=== PATIENT | female | born 1965 | race Caucasian/White ===

== ENCOUNTER → 2016-03-27 | Outpatient (CLI) | payer BC ==
[~2016-03-27] MED LIST: AMBIEN CR 12.12.5 MG PO; BENADRYL25 M2 PO; CELEXA 20MG20 MG/TAB PO; CELEXA40 MG PO; CHANTIX 1MG1 MG PO; DESYREL 50MG50 MG PO; DIPHENHYDRAMINE25 M1; IMITREX100 MG; KLONOPIN 1MG1 MG PO; LEVAQUIN 5500 MG/TA1 PO; MACRODANTIN100 PO; MAXALT10 MG PO; MELATONIN5 M1; MORPHINE 1515 MG/TAB PO; MS CONTIN 115 MG/TAB PO; NEURONTIN300 MG/CAP PO; NICODERM C7 MG/PATCH TOP; NO HOME MEDICATIONS; PROTANDIM PO; PROTONIX 40MG T40 MG PO; RITALIN 5MG5 MG/TAB; STOOL SOFTENER100 M2 PO; SYNTHROID 0.10.15 MG PO; SYNTHROID0.137 MG; SYNTHROID0.175 MG PO; TYLENOL EXTRA500 M1 PO; WELLBUTRIN XL150 MG PO; XANAX .25M0.25 MG/TA PO; XANAX 0.5MG0.5 MG PO; ZOFRAN 4MG T4 MG/TAB SL; ZOFRAN ODT4 MG PO; ZOVIRAX 200MG200 MG PO
== END ==
LOC: BHSO 15:11
DX: F31.0 Bipolar disorder, current episode hypomanic (principal)

== ENCOUNTER → 2016-04-07 | Outpatient (CLI) | payer BC | LOC: BHSO 16:21 | DX: F31.2 Bipolar disorder, current episode manic severe with psychotic features (principal) ==

== ENCOUNTER → 2016-05-02 | Outpatient (CLI) | payer BC | LOC: BHSO 15:38 | DX: F31.73 Bipolar disorder, in partial remission, most recent episode manic (principal) ==

== ENCOUNTER → 2016-06-05 | Outpatient (CLI) | payer BC | LOC: BHSO 16:04 | DX: F41.1 Generalized anxiety disorder (principal) ==

== ENCOUNTER → 2016-07-28 | Outpatient (CLI) | payer BC | LOC: BHSO 15:46 | DX: F31.73 Bipolar disorder, in partial remission, most recent episode manic (principal) ==

== ENCOUNTER → 2016-10-10 | Outpatient (CLI) | payer BC | LOC: BHSO 16:07 | DX: F31.73 Bipolar disorder, in partial remission, most recent episode manic (principal) ==

== ENCOUNTER → 2016-12-15 | Outpatient (CLI) | payer BC | LOC: BHSO 15:51 | DX: F31.73 Bipolar disorder, in partial remission, most recent episode manic (principal) ==

== ENCOUNTER → 2017-02-11 | Outpatient (CLI) | payer BC | LOC: BHSO 16:08 | DX: F31.73 Bipolar disorder, in partial remission, most recent episode manic (principal) ==

== ENCOUNTER → 2017-04-23 | Outpatient (CLI) | payer BC | LOC: BHSO 15:52 | DX: F31.81 Bipolar II disorder (principal) | CPT/HCPCS: G0463 ==

== ENCOUNTER → 2017-07-28 | Outpatient (CLI) | payer BC | LOC: BHSO 16:05 | DX: F90.0 Attention-deficit hyperactivity disorder, predominantly inattentive type (principal) | CPT/HCPCS: G0463 ==

== ENCOUNTER → 2017-11-27 | Outpatient (CLI) | payer BC | LOC: COL.RAD 13:01 | DX: E03.9 Hypothyroidism, unspecified (principal); R51 Headache | CPT/HCPCS: A9585 ==

== ENCOUNTER → 2017-12-16 | Outpatient (CLI) | payer BC | LOC: BHSO 11:32 | DX: F31.81 Bipolar II disorder (principal) | CPT/HCPCS: G0463 ==

== ENCOUNTER → 2018-02-19 | Outpatient (CLI) | payer BC | LOC: BHSO 14:33 | DX: F31.81 Bipolar II disorder (principal) | CPT/HCPCS: G0463 ==